=== PATIENT | male | born 1955 | race Hispanic/Latino ===

== ENCOUNTER 2024-07-10 23:07 | Emergency (ER) | payer OTHER ==
[~2024-07-10] VITALS: Ht 172.7 cm; Wt 69.4 kg
[2024-07-10 23:35] VITALS: TEMP 99.1
[2024-07-11 00:10] LABS: BASOPHILS % 0.2 % (0.0-1.0); HEMATOCRIT 28.2 % (38.2-49.6); LYMPHOCYTES # (AUTO) 0.6 (1.0-3.2); LYMPHOCYTES % 5.1 % (18.0-39.1); MEAN CORPUSCULAR HEMOGLOBIN 24.5 pg (28-32); MEAN CORPUSCULAR HGB CONC 31.9 g/dL (31-35); MEAN CORPUSCULAR VOLUME 76.8 fL (81-99); MONOCYTES # (AUTO) 0.7 (0.2-0.8); MONOCYTES % 6.1 % (4.4-11.3); NEUTROPHILS # (AUTO) 10.6 (2.1-6.9); NEUTROPHILS % 87.8 % (38.7-80.0); PLATELET COUNT 205 x10e3/uL (140-360); RED BLOOD COUNT 3.67 x10e6/uL (4.3-5.7); RED CELL DISTRIBUTION WIDTH 17.3 % (11.7-14.4); WHITE BLOOD COUNT 12.06 x10e3/uL (4.8-10.8)
[2024-07-11] MEDS: Morphine 4mg INJECTION 4 MG/ML INJ IV STA ×2 (00:28→03:40)
[2024-07-11] MEDS: SODIUM CHLORIDE 0.9% 1000ML 1,000 ML IV STA ×2 (00:29)
[2024-07-11] MEDS: ONDANSETRON HCL INJ 2MG/ML 2ML 2 MG/ML VIAL IV STA (00:29)
[2024-07-11] MEDS: ACETAMINOPHEN 325 MG TAB PO STA (00:30)
[2024-07-11 00:36] LABS: ALBUMIN 2.8 g/dL (3.5-5.0); ALBUMIN/GLOBULIN RATIO 0.8 (0.8-2.0); ANION GAP 18.3 mmol/L (8-16); BILIRUBIN,TOTAL 1.1 mg/dL (0.2-1.2); CALCIUM 8.1 mg/dL (8.4-10.2); CREATININE, SERUM 0.84 mg/dL (0.72-1.25); POTASSIUM 4.3 mmol/L (3.5-5.1); TOTAL PROTEIN 6.1 g/dL (6.5-8.1)
[2024-07-11 00:42] LABS: TROPONIN I 0.028 ng/mL (0-0.300)
[2024-07-11] MEDS ORDERED: IOPAMIDOL 370 MG/ML 100 ML INFUS..BTL INJ ONE (00:58)
[2024-07-11 02:35] LABS: CLARITY,URINE CLEAR (CLEAR); COLOR,URINE AMBER (YELLOW)
[2024-07-11 02:36] LABS: BILIRUBIN,URINE NEGATIVE (NEGATIVE); GLUCOSE, URINE NEGATIVE (NEGATIVE); KETONES,URINE TRACE (NEGATIVE); LEUKOCYTE ESTERASE ,URINE NEGATIVE (NEGATIVE); NITRITE,URINE NEGATIVE (NEGATIVE); PH,URINE 6.5 (5 - 7); PROTEIN,URINE DIPSTICK 2+ (NEGATIVE); URINE UROBILINOGEN 0.2 mg/dL (0.2 - 1)
[2024-07-11 02:37] LABS: BACTERIA,URINE MANY /HPF; EPITHELIAL CELLS,URINE FEW /LPF
[2024-07-11] MEDS ORDERED: ONDANSETRON ODT4 MG PO (03:04)
[2024-07-11] MEDS ORDERED: AMOX TR-K CLV1 EAC2 PO (03:04)
[2024-07-11] MEDS ORDERED: ULTRAM 50MG50 MG PO (03:04)
[2024-07-11 03:35] VITALS: PULSE 89; RESP 17
[2024-07-11 03:50] VITALS: BP 105/58; O2SAT 98
== END 2024-07-11 03:54 | disposition home or self-care (01) ==
LOC: ER 23:24
DX: R10.13 Epigastric pain (principal); N39.0 Urinary tract infection, site not specified; K40.20 Bilateral inguinal hernia, without obstruction or gangrene, not specified as recurrent; Z85.038 Personal history of other malignant neoplasm of large intestine; Z85.05 Personal history of malignant neoplasm of liver
CPT/HCPCS: 36415; 74177; 80053; 81001; 82550; 83605; 83690; 84484; 85025; 87040; 87071; 87086; 87205; 93005; 99284; J2270; J2405; J2543; J7030; Q9967

== ENCOUNTER 2024-07-17 09:42 | Inpatient (IN) | payer MEDICARE, OTHER ==
[~2024-07-17] VITALS: Ht 172.7 cm; Wt 75.3 kg
[2024-07-17] VITALS (12 sets, daily range): BP systolic 110–121; BP diastolic 66–76; PULSE 74–117; RESP 11–24; TEMP 98–100.4; O2SAT 99–100
[~2024-07-17 09:42] MED LIST: AMOX TR-K CLV1 EAC2 PO; ONDANSETRON ODT4 MG PO; ULTRAM 50MG50 MG PO
[2024-07-17] MEDS ORDERED: IOPAMIDOL 370 MG/ML 100 ML INFUS..BTL INJ ONE (10:22)
[2024-07-17 10:51] LABS: BASOPHILS % 0.2 % (0.0-1.0); EOSINOPHILS % 0.1 % (0.0-6.0); LYMPHOCYTES # (AUTO) 0.6 (1.0-3.2); LYMPHOCYTES % 5.9 % (18.0-39.1); MEAN CORPUSCULAR HEMOGLOBIN 23.9 pg (28-32); MEAN CORPUSCULAR HGB CONC 30.9 g/dL (31-35); MEAN CORPUSCULAR VOLUME 77.2 fL (81-99); MONOCYTES # (AUTO) 1.5 (0.2-0.8); MONOCYTES % 13.9 % (4.4-11.3); NEUTROPHILS # (AUTO) 8.4 (2.1-6.9); NEUTROPHILS % 78.3 % (38.7-80.0); PLATELET COUNT 361 x10e3/uL (140-360); RED BLOOD COUNT 2.68 x10e6/uL (4.3-5.7); WHITE BLOOD COUNT 10.73 x10e3/uL (4.8-10.8)
[2024-07-17 11:10] LABS: HEMATOCRIT 20.7 % (38.2-49.6); HEMOGLOBIN 6.4 g/dL (14.0-18.0)
[2024-07-17 11:36] LABS: ALBUMIN 2.3 g/dL (3.5-5.0); ALBUMIN/GLOBULIN RATIO 0.5 (0.8-2.0); ANION GAP 16.5 mmol/L (8-16); BILIRUBIN,TOTAL 1.2 mg/dL (0.2-1.2); CALCIUM 8.7 mg/dL (8.4-10.2); CREATININE, SERUM 0.96 mg/dL (0.72-1.25); MAGNESIUM 1.6 MG/DL (1.3-2.1); POTASSIUM 4.5 mmol/L (3.5-5.1)
[2024-07-17] MEDS: Morphine 4mg INJECTION 4 MG/ML INJ IV STA (11:45)
[2024-07-17] MEDS: ONDANSETRON HCL INJ 2MG/ML 2ML 2 MG/ML VIAL IV STA ×2 (11:46→14:41)
[2024-07-17] MEDS: SODIUM CHLORIDE 0.9% 1000ML 1,000 ML IV STA (11:46)
[2024-07-17 12:05] LABS: PROTHROMBIN TIME 91.1 seconds (11.9-14.5)
[2024-07-17 12:05] LABS: TROPONIN I 0.013 ng/mL (0-0.300)
[2024-07-17 12:06] LABS: INR 11.2; PARTIAL THROMBOPLASTIN TIME 132.1 seconds (23.8-35.5)
[2024-07-17] MEDS: OCTREOTIDE ACETATE 0.05 MG/ML AMP IV STA (12:45)
[2024-07-17] MEDS: MEROPENEM 1 GM in SODIUM CHLORIDE 0.9% 100 ML IV ONE (12:46)
[2024-07-17] MEDS: OCTREOTIDE ACETATE 500 MCG in SODIUM CHLORIDE 0.9% 250ML 249 ML IV SCH (13:11)
[2024-07-17] MEDS: Vancomycin IV 1 GM in SODIUM CHLORIDE 0.9% 250ML 250 ML IV ONE (13:39)
[2024-07-17] MEDS ORDERED: SODIUM CHLORIDE 0.9% 500ML 500 ML ONE ×2 (13:59→17:16)
[2024-07-17] MEDS: Morphine 4mg INJECTION 4 MG/ML INJ IV ONE (14:42)
[2024-07-17] MEDS: SODIUM CHLORIDE 0.9% 500ML 500 ML IV ONE (17:31)
[2024-07-17] MEDS: DIPHENHYDRAMINE HCL INJ 50 MG/ML VIAL IV ONE (17:38)
[2024-07-17] MEDS: ACETAMINOPHEN 1000 MG/100 ML IV STA (17:39)
[2024-07-17 17:46] LABS: BASOPHILS % 0.3 % (0.0-1.0); EOSINOPHILS % 0.2 % (0.0-6.0); HEMATOCRIT 22.9 % (38.2-49.6); HEMOGLOBIN 7.1 g/dL (14.0-18.0); LYMPHOCYTES # (AUTO) 1.4 (1.0-3.2); LYMPHOCYTES % 9.7 % (18.0-39.1); MEAN CORPUSCULAR HEMOGLOBIN 24.7 pg (28-32); MEAN CORPUSCULAR VOLUME 79.8 fL (81-99); MONOCYTES # (AUTO) 1.8 (0.2-0.8); MONOCYTES % 12.8 % (4.4-11.3); NEUTROPHILS # (AUTO) 10.5 (2.1-6.9); NEUTROPHILS % 75.7 % (38.7-80.0); PLATELET COUNT 310 x10e3/uL (140-360); RED BLOOD COUNT 2.87 x10e6/uL (4.3-5.7); RED CELL DISTRIBUTION WIDTH 18.9 % (11.7-14.4); WHITE BLOOD COUNT 13.88 x10e3/uL (4.8-10.8)
[2024-07-17 18:10] LABS: TROPONIN I 0.007 ng/mL (0-0.300)
[2024-07-17 18:11] LABS: CLARITY,URINE CLEAR (CLEAR); COLOR,URINE YELLOW (YELLOW); LEUKOCYTE ESTERASE ,URINE NEGATIVE (NEGATIVE); NITRITE,URINE NEGATIVE (NEGATIVE); PH,URINE 5.5 (5 - 7)
[2024-07-17 18:12] LABS: BACTERIA,URINE FEW /HPF; BILIRUBIN,URINE NEGATIVE (NEGATIVE); EPITHELIAL CELLS,URINE FEW /LPF; GLUCOSE, URINE NEGATIVE (NEGATIVE); KETONES,URINE TRACE (NEGATIVE); PROTEIN,URINE DIPSTICK NEGATIVE (NEGATIVE); RBC,URINE 0-5 /HPF (0-5); URINE UROBILINOGEN 0.2 mg/dL (0.2 - 1); WBC,URINE (MAN) 0-5 /HPF (0-5)
[2024-07-17 18:23] LABS: INR 3.88; PROTHROMBIN TIME 39.8 seconds (11.9-14.5)
[2024-07-17 18:25] LABS: PARTIAL THROMBOPLASTIN TIME 70.5 seconds (23.8-35.5)
[2024-07-18] VITALS (64 sets, daily range): BP systolic 103–142; BP diastolic 57–97; PULSE 62–86; RESP 10–24; TEMP 97.8–99; O2SAT 88–100
[2024-07-18 00:55] LABS: TROPONIN I 0.016 ng/mL (0-0.300)
[2024-07-18 01:33] LABS: BASOPHILS % 0.2 % (0.0-1.0); EOSINOPHILS # (AUTO) 0.1 (0.0-0.4); EOSINOPHILS % 0.5 % (0.0-6.0); HEMATOCRIT 20.8 % (38.2-49.6); LYMPHOCYTES % 7.7 % (18.0-39.1); MEAN CORPUSCULAR HEMOGLOBIN 24.3 pg (28-32); MEAN CORPUSCULAR HGB CONC 30.8 g/dL (31-35); MEAN CORPUSCULAR VOLUME 79.1 fL (81-99); MONOCYTES # (AUTO) 1.7 (0.2-0.8); MONOCYTES % 12.5 % (4.4-11.3); NEUTROPHILS # (AUTO) 10.3 (2.1-6.9); NEUTROPHILS % 78.2 % (38.7-80.0); PLATELET COUNT 347 x10e3/uL (140-360); RED BLOOD COUNT 2.63 x10e6/uL (4.3-5.7); RED CELL DISTRIBUTION WIDTH 18.6 % (11.7-14.4); WHITE BLOOD COUNT 13.21 x10e3/uL (4.8-10.8)
[2024-07-18 02:19] LABS: HEMOGLOBIN 6.4 g/dL (14.0-18.0)
[2024-07-18 08:06] LABS: BASOPHILS % 0.2 % (0.0-1.0); EOSINOPHILS # (AUTO) 0.1 (0.0-0.4); EOSINOPHILS % 0.6 % (0.0-6.0); LYMPHOCYTES # (AUTO) 0.7 (1.0-3.2); LYMPHOCYTES % 6.5 % (18.0-39.1); MEAN CORPUSCULAR HEMOGLOBIN 24.4 pg (28-32); MEAN CORPUSCULAR HGB CONC 30.8 g/dL (31-35); MEAN CORPUSCULAR VOLUME 79.3 fL (81-99); MONOCYTES % 9.4 % (4.4-11.3); NEUTROPHILS # (AUTO) 9.1 (2.1-6.9); NEUTROPHILS % 82.2 % (38.7-80.0); PLATELET COUNT 314 x10e3/uL (140-360); RED BLOOD COUNT 2.46 x10e6/uL (4.3-5.7); RED CELL DISTRIBUTION WIDTH 18.5 % (11.7-14.4)
[2024-07-18] MEDS: Morphine 2mg Syringe 2 MG/ML SYR IV PRN (08:19)
[2024-07-18 08:28] LABS: HEMATOCRIT 19.5 % (38.2-49.6)
[2024-07-18] MEDS: DIPHENHYDRAMINE HCL INJ 50 MG/ML VIAL IV ONE (08:33)
[2024-07-18] MEDS: DEXAMETHASONE SOD PHOS 10 MG/1 ML VIAL IV ONE (08:33)
[2024-07-18] MEDS: ACETAMINOPHEN 325 MG TAB PO ONE (08:34)
[2024-07-18 08:38] LABS: ALBUMIN 2.2 g/dL (3.5-5.0); ALBUMIN/GLOBULIN RATIO 0.6 (0.8-2.0); ANION GAP 11.9 mmol/L (8-16); BILIRUBIN,TOTAL 1.1 mg/dL (0.2-1.2); CREATININE, SERUM 0.77 mg/dL (0.72-1.25); POTASSIUM 4.9 mmol/L (3.5-5.1); TOTAL PROTEIN 6.2 g/dL (6.5-8.1)
[2024-07-18 08:52] LABS: INR 8.14
[2024-07-18 09:02] LABS: TROPONIN I 0.013 ng/mL (0-0.300)
[2024-07-18] MEDS: SODIUM CHLORIDE 0.9% 250ML 250 ML ONE ×3 (12:12→18:58)
[2024-07-18] MEDS: PHYTONADIONE 10MG/ML INJ 10 MG in Sodium Chloride 0.9% 50ML 50 ML IV SCH (12:13)
[2024-07-18] MEDS: ONDANSETRON HCL INJ 2MG/ML 2ML 2 MG/ML VIAL IV PRN (17:33)
[2024-07-19] VITALS (33 sets, daily range): BP systolic 98–141; BP diastolic 54–100; PULSE 57–78; RESP 9–20; TEMP 97.7–98.2; O2SAT 98–100
[2024-07-19 00:39] LABS: BASOPHILS % 0.1 % (0.0-1.0); HEMATOCRIT 26.1 % (38.2-49.6); HEMOGLOBIN 8.4 g/dL (14.0-18.0); LYMPHOCYTES # (AUTO) 0.6 (1.0-3.2); LYMPHOCYTES % 3.5 % (18.0-39.1); MEAN CORPUSCULAR HEMOGLOBIN 25.8 pg (28-32); MEAN CORPUSCULAR HGB CONC 32.2 g/dL (31-35); MEAN CORPUSCULAR VOLUME 80.1 fL (81-99); MONOCYTES # (AUTO) 0.7 (0.2-0.8); NEUTROPHILS # (AUTO) 15.7 (2.1-6.9); NEUTROPHILS % 91.2 % (38.7-80.0); PLATELET COUNT 336 x10e3/uL (140-360); RED BLOOD COUNT 3.26 x10e6/uL (4.3-5.7); RED CELL DISTRIBUTION WIDTH 17.2 % (11.7-14.4); WHITE BLOOD COUNT 17.16 x10e3/uL (4.8-10.8)
[2024-07-19 06:41] LABS: BASOPHILS % 0.2 % (0.0-1.0); HEMATOCRIT 25.1 % (38.2-49.6); HEMOGLOBIN 7.9 g/dL (14.0-18.0); LYMPHOCYTES # (AUTO) 0.7 (1.0-3.2); LYMPHOCYTES % 3.8 % (18.0-39.1); MEAN CORPUSCULAR HEMOGLOBIN 25.5 pg (28-32); MEAN CORPUSCULAR HGB CONC 31.5 g/dL (31-35); MONOCYTES # (AUTO) 0.7 (0.2-0.8); MONOCYTES % 4.1 % (4.4-11.3); NEUTROPHILS % 90.3 % (38.7-80.0); PLATELET COUNT 347 x10e3/uL (140-360); RED CELL DISTRIBUTION WIDTH 17.4 % (11.7-14.4); WHITE BLOOD COUNT 17.66 x10e3/uL (4.8-10.8)
[2024-07-19 07:11] LABS: INR 1.46; PROTHROMBIN TIME 18.5 seconds (11.9-14.5)
[2024-07-19] MEDS ORDERED: PHYTONADIONE 10 MG/ML AMP SC SCH (09:00)
[2024-07-19 13:55] LABS: BASOPHILS % 0.1 % (0.0-1.0); HEMATOCRIT 27.1 % (38.2-49.6); HEMOGLOBIN 8.7 g/dL (14.0-18.0); LYMPHOCYTES # (AUTO) 0.8 (1.0-3.2); LYMPHOCYTES % 3.4 % (18.0-39.1); MEAN CORPUSCULAR HEMOGLOBIN 25.9 pg (28-32); MEAN CORPUSCULAR HGB CONC 32.1 g/dL (31-35); MEAN CORPUSCULAR VOLUME 80.7 fL (81-99); MONOCYTES % 4.5 % (4.4-11.3); NEUTROPHILS # (AUTO) 20.3 (2.1-6.9); NEUTROPHILS % 90.7 % (38.7-80.0); PLATELET COUNT 373 x10e3/uL (140-360); RED BLOOD COUNT 3.36 x10e6/uL (4.3-5.7); WHITE BLOOD COUNT 22.39 x10e3/uL (4.8-10.8)
[2024-07-19] MEDS ORDERED: POLYETHYLENE GLYCOL 3350 17 GM PACK PO PRN (19:00)
[2024-07-19 22:03] LABS: BASOPHILS % 0.1 % (0.0-1.0); HEMATOCRIT 24.1 % (38.2-49.6); HEMOGLOBIN 7.9 g/dL (14.0-18.0); LYMPHOCYTES # (AUTO) 0.8 (1.0-3.2); MEAN CORPUSCULAR HGB CONC 32.8 g/dL (31-35); MEAN CORPUSCULAR VOLUME 79.3 fL (81-99); MONOCYTES # (AUTO) 0.9 (0.2-0.8); MONOCYTES % 4.3 % (4.4-11.3); NEUTROPHILS # (AUTO) 19.1 (2.1-6.9); NEUTROPHILS % 90.5 % (38.7-80.0); PLATELET COUNT 377 x10e3/uL (140-360); RED BLOOD COUNT 3.04 x10e6/uL (4.3-5.7); RED CELL DISTRIBUTION WIDTH 18.3 % (11.7-14.4); WHITE BLOOD COUNT 21.14 x10e3/uL (4.8-10.8)
[2024-07-20] VITALS (17 sets, daily range): BP systolic 104–133; BP diastolic 56–77; PULSE 50–78; RESP 9–18; TEMP 97.7–98.2; O2SAT 98–100
[2024-07-20 05:09] LABS: BASOPHILS % 0.1 % (0.0-1.0); HEMATOCRIT 25.1 % (38.2-49.6); LYMPHOCYTES # (AUTO) 0.9 (1.0-3.2); LYMPHOCYTES % 4.3 % (18.0-39.1); MEAN CORPUSCULAR HEMOGLOBIN 25.8 pg (28-32); MEAN CORPUSCULAR HGB CONC 31.9 g/dL (31-35); NEUTROPHILS # (AUTO) 18.2 (2.1-6.9); PLATELET COUNT 335 x10e3/uL (140-360); RED CELL DISTRIBUTION WIDTH 18.5 % (11.7-14.4); WHITE BLOOD COUNT 20.47 x10e3/uL (4.8-10.8)
[2024-07-20] MEDS: DOCUSATE SODIUM 100 MG CAP PO SCH (08:10)
[2024-07-21] VITALS (14 sets, daily range): BP systolic 102–128; BP diastolic 57–70; PULSE 54–79; RESP 11–18; TEMP 97.8–99.3; O2SAT 98–100
[2024-07-21 06:34] LABS: BASOPHILS % 0.2 % (0.0-1.0); EOSINOPHILS # (AUTO) 0.1 (0.0-0.4); EOSINOPHILS % 0.9 % (0.0-6.0); HEMATOCRIT 27.4 % (38.2-49.6); HEMOGLOBIN 8.5 g/dL (14.0-18.0); LYMPHOCYTES # (AUTO) 1.3 (1.0-3.2); LYMPHOCYTES % 10.3 % (18.0-39.1); MEAN CORPUSCULAR HEMOGLOBIN 25.4 pg (28-32); MEAN CORPUSCULAR VOLUME 81.8 fL (81-99); MONOCYTES # (AUTO) 1.1 (0.2-0.8); MONOCYTES % 8.8 % (4.4-11.3); NEUTROPHILS # (AUTO) 9.8 (2.1-6.9); NEUTROPHILS % 77.3 % (38.7-80.0); PLATELET COUNT 348 x10e3/uL (140-360); RED BLOOD COUNT 3.35 x10e6/uL (4.3-5.7); RED CELL DISTRIBUTION WIDTH 18.9 % (11.7-14.4); WHITE BLOOD COUNT 12.62 x10e3/uL (4.8-10.8)
[2024-07-21 06:54] LABS: INR 1.38; PROTHROMBIN TIME 17.7 seconds (11.9-14.5)
[2024-07-21 07:01] LABS: ANION GAP 11.5 mmol/L (8-16); CALCIUM 8.1 mg/dL (8.4-10.2); CREATININE, SERUM 0.8 mg/dL (0.72-1.25); POTASSIUM 4.5 mmol/L (3.5-5.1)
[2024-07-22] MEDS: SODIUM CHLORIDE 0.9% 250ML 250 ML ONE (01:42)
[2024-07-22 04:00] VITALS: BP 99/62; PULSE 86; RESP 19; TEMP 99.1; O2SAT 95
[2024-07-22 05:40] LABS: BASOPHILS % 0.2 % (0.0-1.0); EOSINOPHILS # (AUTO) 0.2 (0.0-0.4); EOSINOPHILS % 1.5 % (0.0-6.0); HEMATOCRIT 26.9 % (38.2-49.6); HEMOGLOBIN 8.6 g/dL (14.0-18.0); LYMPHOCYTES # (AUTO) 1.5 (1.0-3.2); LYMPHOCYTES % 12.1 % (18.0-39.1); MEAN CORPUSCULAR HEMOGLOBIN 26.1 pg (28-32); MEAN CORPUSCULAR VOLUME 81.8 fL (81-99); MONOCYTES # (AUTO) 1.2 (0.2-0.8); MONOCYTES % 10.1 % (4.4-11.3); NEUTROPHILS # (AUTO) 8.8 (2.1-6.9); NEUTROPHILS % 71.5 % (38.7-80.0); PLATELET COUNT 347 x10e3/uL (140-360); RED BLOOD COUNT 3.29 x10e6/uL (4.3-5.7); RED CELL DISTRIBUTION WIDTH 19.1 % (11.7-14.4); WHITE BLOOD COUNT 12.23 x10e3/uL (4.8-10.8)
[2024-07-22 06:15] LABS: ALBUMIN/GLOBULIN RATIO 0.5 (0.8-2.0); ANION GAP 11.2 mmol/L (8-16); CALCIUM 7.9 mg/dL (8.4-10.2); CREATININE, SERUM 0.75 mg/dL (0.72-1.25); POTASSIUM 4.2 mmol/L (3.5-5.1); TOTAL PROTEIN 5.7 g/dL (6.5-8.1)
[2024-07-22 09:08] VITALS: BP 94/57; PULSE 78; RESP 18; TEMP 98.8; O2SAT 94
[2024-07-22 10:14] VITALS: BP 94/57; PULSE 78; RESP 18; TEMP 98.8; O2SAT 94
[2024-07-22 15:58] VITALS: BP 104/46; PULSE 72; RESP 18; TEMP 98.7; O2SAT 94
== END 2024-07-22 17:37 | disposition home or self-care (01) | DRG 435 ==
LOC: ER 09:53 → ERHOLD 15:51 → ICU 16:46 → ERHOLD 17:00 → ICU 18:10 → MED/SURG 07-21 16:40
PROVIDERS: ADMIT Internal Medicine; ATTEND Internal Medicine
PROC: 30233N1 Transfusion of Nonautologous Red Blood Cells into Peripheral Vein, Percutaneous Approach (ICD-10-PCS; principal; 2024-07-17)
PROC: 30233K1 Transfusion of Nonautologous Frozen Plasma into Peripheral Vein, Percutaneous Approach (ICD-10-PCS; 2024-07-17)
DX: C78.7 Secondary malignant neoplasm of liver and intrahepatic bile duct (principal); J18.9 Pneumonia, unspecified organism; D68.32 Hemorrhagic disorder due to extrinsic circulating anticoagulants; J90 Pleural effusion, not elsewhere classified; K76.89 Other specified diseases of liver; T80.89XA Other complications following infusion, transfusion and therapeutic injection, initial encounter; R50.84 Febrile nonhemolytic transfusion reaction; T45.515A Adverse effect of anticoagulants, initial encounter; D63.0 Anemia in neoplastic disease; D72.829 Elevated white blood cell count, unspecified; K21.9 Gastro-esophageal reflux disease without esophagitis; Z85.038 Personal history of other malignant neoplasm of large intestine; Z92.21 Personal history of antineoplastic chemotherapy; Z92.3 Personal history of irradiation; Y84.8 Other medical procedures as the cause of abnormal reaction of the patient, or of later complication, without mention of misadventure at the time of the procedure
CPT/HCPCS: 36415; 71045; 74177; 76604; 76700; 76705; 80048; 80053; 81001; 82550; 83690; 83735; 84484; 85025; 85610; 85730; 86078; 86850; 86900; 86920; 87040; 87086; 93005; 94760; 94799; 99252; 99284; J0692; J1100; J1200; J2185; J2270; J2353; J2354; J2405; J2470; J3430; J7030; J7040; J7050; P9016; P9017; Q9967

== ENCOUNTER → 2024-08-09 | Outpatient (REF) | payer MEDICARE ==
[~2024-08-09] MED LIST changes: +IOPAMIDOL 370 MG/ML 100 ML INFUS..BTL INJ ONE
[2024-08-09 09:07] LABS: CREATININE, SERUM 0.74 mg/dL (0.72-1.25)
== END ==
LOC: CT 07:54
PROVIDERS: ATTEND Internal Medicine Medical Oncology
DX: C18.7 Malignant neoplasm of sigmoid colon (principal); C78.7 Secondary malignant neoplasm of liver and intrahepatic bile duct; K76.2 Central hemorrhagic necrosis of liver
CPT/HCPCS: 36415; 74177; 82565; 84520; Q9967

== ENCOUNTER 2024-10-25 07:40 | Emergency (ER) | payer MEDICARE ==
[~2024-10-25] VITALS: Ht 172.7 cm; Wt 63.5 kg
[~2024-10-25 07:40] MED LIST changes: -IOPAMIDOL 370 MG/ML 100 ML INFUS..BTL INJ ONE
[2024-10-25 09:03] LABS: BASOPHILS % 0.2 % (0.0-1.0); EOSINOPHILS % 0.0 % (0.0-6.0); LYMPHOCYTES % 7.6 % (18.0-39.1); MONOCYTES % 2.1 % (4.4-11.3); NEUTROPHILS % 89.6 % (38.7-80.0); RED CELL DISTRIBUTION WIDTH 18.3 % (11.7-14.4)
[2024-10-25] MEDS: SODIUM CHLORIDE 0.9% 1000ML 1,000 ML IV STA (09:11)
[2024-10-25] MEDS: ONDANSETRON HCL INJ 2MG/ML 2ML 2 MG/ML VIAL IV STA (09:11)
[2024-10-25] MEDS: Morphine 4mg INJECTION 4 MG/ML INJ IV STA (09:12)
[2024-10-25 09:20] LABS: INR 0.93
[2024-10-25 09:28] LABS: EST GLOMERULAR FILTRATION RATE 94 ML/MIN (>=60)
[2024-10-25] MEDS ORDERED: IOPAMIDOL 370 MG/ML 100 ML INFUS..BTL INJ ONE (09:51)
[2024-10-25 12:05] LABS: LEUKOCYTE ESTERASE ,URINE NEGATIVE (NEGATIVE); PROTEIN,URINE DIPSTICK NEGATIVE (NEGATIVE); URINE UROBILINOGEN 0.2 mg/dL (0.2 - 1)
[2024-10-25 12:11] LABS: WBC,URINE (MAN) 0-5 /HPF (0-5)
[2024-10-25] MEDS ORDERED: DICYCLOMINE HCL20 MG PO (12:41)
[2024-10-25] MEDS: DICYCLOMINE HCL 20 MG/2 ML VIAL IM ONE (13:05)
[2024-10-25 13:43] VITALS: PULSE 77; RESP 18; TEMP 98.4; O2SAT 98
== END 2024-10-25 13:45 | disposition home or self-care (01) ==
LOC: ER 07:55
DX: K80.20 Calculus of gallbladder without cholecystitis without obstruction (principal); R10.9 Unspecified abdominal pain; R11.0 Nausea; C18.9 Malignant neoplasm of colon, unspecified; C78.7 Secondary malignant neoplasm of liver and intrahepatic bile duct; D64.9 Anemia, unspecified
CPT/HCPCS: 36415; 71045; 74177; 76705; 80053; 81001; 83690; 83735; 84484; 85025; 85610; 85730; 93005; 99284; J0500; J2270; J2405; J2470; J7030; Q9967